=== PATIENT | male | born 1965 | race Caucasian/White ===

== ENCOUNTER 2022-05-18 10:27 | Emergency (ER) | payer BC ==
[2022-05-18] MEDS ORDERED: Orphenadrine 60 MG/2 ML Inj IM ONE (10:35)
[2022-05-18] MEDS ORDERED: Ketorolac 30 MG/ML SDV IM ONE (10:35)
[2022-05-18] MEDS ORDERED: Acetaminophen/HYDROcodone 325-5 MG Tab PO ONE ×2 (10:36→12:29)
== END 2022-05-18 12:50 | disposition home or self-care (01) ==
LOC: LL.ED 10:27
DX: M54.10 Radiculopathy, site unspecified (principal); R10.2 Pelvic and perineal pain; Z91.040 Latex allergy status; Z88.6 Allergy status to analgesic agent; Z88.2 Allergy status to sulfonamides; Z79.899 Other long term (current) drug therapy
CPT/HCPCS: 72100; 73502; 96372; 99283; A9270; J1885; J2360

== ENCOUNTER 2022-12-11 12:31 | Day surgery (SDC) | payer BC ==
[~2022-12-11 12:31] MED LIST: Propofol 200 MG/20 ML SDV ONE
[2022-12-11] MEDS ORDERED: Sodium Chloride 0.9% 10 ML Syringe FLUSH PRN (13:00)
[2022-12-11] MEDS ORDERED: Lactated Ringers 1,000 ML IV SCH (13:00)
[2022-12-11] MEDS ORDERED: Propofol 200 MG/20 ML SDV ONE (14:46)
== END 2022-12-11 15:50 | disposition home or self-care (01) ==
LOC: LL.SDS 12:31
PROVIDERS: ATTEND Surgery
DX: K62.89 Other specified diseases of anus and rectum (principal); K52.9 Noninfective gastroenteritis and colitis, unspecified; F32.A Depression, unspecified; M06.9 Rheumatoid arthritis, unspecified; K51.90 Ulcerative colitis, unspecified, without complications; Z87.19 Personal history of other diseases of the digestive system; Z91.040 Latex allergy status; Z88.2 Allergy status to sulfonamides; Z88.6 Allergy status to analgesic agent; Z79.899 Other long term (current) drug therapy
CPT/HCPCS: 00812; 45380; J2704; J7120